=== PATIENT | female | born 1980 | race Caucasian/White ===

== ENCOUNTER 2017-04-27 10:55 | Emergency (ER) | payer BC, OTHER ==
[~2017-04-27 10:55] MED LIST: Motrin PO; Tylenol/Codeine #3 PO
[2017-04-27 11:19] LABS: BASOPHIL (%) 0.4 % (0-1); EOSINOPHIL (%) 2.9 % (0-5); EOSINOPHIL COUNT 0.2 K/uL (0-0.3); HEMATOCRIT 42.1 % (36.0-46.0); HEMOGLOBIN 14.4 G/DL (11.9-15.5); IMMATURE GRANULOCYTE (%) 0.4 % (0.0-0.7); LYMPHOCYTE (%) 24.8 % (15-42); MCH 30.9 PG (29.0-34.0); MCHC 34.2 G/DL (30.0-36.0); MCV 90.3 FL (83-99); MONOCYTE (%) 5.9 % (3-12); MONOCYTE COUNT 0.5 K/uL (0-0.8); NEUTROPHIL (%) 65.6 % (45-76); NEUTROPHIL COUNT 5.3 K/uL (1.8-6.4); PLATELET COUNT 224 K/uL (156-360); RBC DIS.WIDTH-CV 12.1 % (11.8-14.6); RBC DIS.WIDTH-SD 40.3 % (39-53); RED BLOOD COUNT 4.66 M/uL (3.80-5.20)
[2017-04-27 11:29] LABS: AMYLASE 39 IU/L (1-118)
[2017-04-27 11:30] LABS: CHLORIDE 107 mEq/L (99-109); POTASSIUM 3.8 mEq/L (3.7-5.4); SODIUM 139 mEq/L (136-147)
[2017-04-27 11:31] LABS: GLUCOSE 138 mg/dL (70-99)
[2017-04-27 11:34] LABS: SERUM ETHYL ALCOHOL < 10 mg/dL
[2017-04-27 11:35] LABS: CREATININE 0.8 mg/dL (0.6-1.3); GFR ESTIMATE (CALCULATED) > 59 mL/min/
[2017-04-27 11:36] LABS: UREA NITROGEN (BUN) 10 mg/dL (9-23)
[2017-04-27 11:38] LABS: LIPASE 24 U/L (1.0-51.0)
[2017-04-27 11:44] LABS: QUANTITATIVE HCG < 4.0 MIU/ML
== END 2017-04-27 14:42 | disposition short-term general hospital (02) ==
LOC: TRA 10:55
PROVIDERS: Emergency Medicine
PROC: 0SSFXZZ Reposition Right Ankle Joint, External Approach (ICD-10-PCS; principal; 2017-04-27)
PROC: 3E0234Z Introduction of Serum, Toxoid and Vaccine into Muscle, Percutaneous Approach (ICD-10-PCS; principal; 2017-04-27)
DX: S93.04XA Dislocation of right ankle joint, initial encounter (principal); S91.001A Unspecified open wound, right ankle, initial encounter; S93.491A Sprain of other ligament of right ankle, initial encounter; W10.9XXA Fall (on) (from) unspecified stairs and steps, initial encounter; X50.1XXA Overexertion from prolonged static or awkward postures, initial encounter
CPT/HCPCS: 73590; 73600; 73610; 80048; 81003; 82150; 83690; 84702; 85025; 86850; 86900; 86901; 99281; 99285; G0480; J0690; J2270; J2405; J3010

== ENCOUNTER 2017-05-09 16:06 | Emergency (ER) | payer BC, OTHER ==
[~2017-05-09] VITALS: Ht 175.3 cm; Wt 109.0 kg
[2017-05-09 16:40] LABS: HEMATOCRIT 43.5 % (36.0-46.0); HEMOGLOBIN 14.7 G/DL (11.9-15.5); MCH 30.9 PG (29.0-34.0); MCHC 33.8 G/DL (30.0-36.0); MCV 91.4 FL (83-99); RBC DIS.WIDTH-CV 11.8 % (11.8-14.6); RBC DIS.WIDTH-SD 39.8 % (39-53); RED BLOOD COUNT 4.76 M/uL (3.80-5.20); WHITE BLOOD COUNT 11.7 K/uL (4.1-10.2)
[2017-05-09 16:42] LABS: PLATELET COUNT 302 K/uL (156-360)
[2017-05-09 16:53] LABS: CHLORIDE 103 mEq/L (99-109); POTASSIUM 4.1 mEq/L (3.7-5.4); SODIUM 140 mEq/L (136-147)
[2017-05-09 16:55] LABS: GLUCOSE 124 mg/dL (70-99)
[2017-05-09 16:59] LABS: CREATININE 0.8 mg/dL (0.6-1.3); GFR ESTIMATE (CALCULATED) > 59 mL/min/
[2017-05-09 17:00] LABS: UREA NITROGEN (BUN) 12 mg/dL (9-23)
[2017-05-09 17:03] LABS: TROP-I INTERPRETATION NEGATIVE; TROPONIN-I < 0.01 ng/mL (0.0-0.30)
[2017-05-09] MEDS ORDERED: VENTOLIN HFA18 GM IH (21:36)
[2017-05-09] MEDS ORDERED: ZITHROMAX Z-PA250 MG PO (21:37)
[2017-05-09 23:00] VITALS: BP 105/63
== END 2017-05-09 23:05 | disposition home or self-care (01) ==
LOC: EME 16:06
DX: J40 Bronchitis, not specified as acute or chronic (principal); R91.8 Other nonspecific abnormal finding of lung field; R07.89 Other chest pain; Z87.891 Personal history of nicotine dependence; Z88.5 Allergy status to narcotic agent
CPT/HCPCS: 71046; 71275; 80048; 84484; 85027; 93005; 94640; 99281; 99285; J2270; J2405; J7030